=== PATIENT | male | born 1995 | race Caucasian/White ===

== ENCOUNTER → 2016-06-21 | Outpatient (CLI) | payer BC ==
[~2016-06-21] MED LIST: AZIT250T81 PO; LIDOVISC MT
[2016-06-21 11:14] VITALS: BP 142/80
--- NOTE | 2016-06-21 11:14 | Urgent Care T Sheet Gen (E) ---
Intake General Temperature (Fahrenheit): 100.4 Pulse: 101 Blood Pressure Systolic: 142 Blood Pressure Diastolic: 80 (taking OTC cold meds) Respirations: 20 SPO2: 96 Description of Symptoms patient presents with body aches, chills, sore throat and phlegm. Patient was seen 2 weeks ago at home and was checked for strep (negative) and was told he has a URI and was started on Flonase and Claritin. Patient states he had been doing better however felt worse last night. [place] a baseball tourney. Been taking DayQuil, NyQuil and Tylenol which helps temporarily. Respiratory Constitutional Symptoms: Chills Fever Malaise EENTM: Nose Congestion Throat pain Respiratory: Cough Cardiovascular: No symptoms reported Gastrointestinal/Abdominal: No symptoms reported All Other Systems Reviewed Remaining Systems: All other systems reviewed with negative findings Physical Exam Physical Exam General Appearance: WD/WN No apparent distress Eyes, Ears, Nose, Throat Ex: TMs normal Pharyngeal erythema Other (clear, thick nasal congestion) Neck Exam: Supple Lymphadenopathy Respiratory Exam: Lungs clear Normal breath sounds Cardiovascular Exam: Regular rate, rhythm Progress/Orders Lab Results Labs Results: [place] (negative), Rapid Strep (negative) Medications Administered Medications Adminstered: Depomedrol (80mg IM injection into R gluteal. Lot [id number] Lot 11/2016) Departure Urgent Care Impression Impression: Primary Impression: Pharyngitis Qualified Code: J02.8 - Acute pharyngitis due to other specified organisms Additional Impression: Cough Departure Disposition: 01 HOME OR SELF-CARE Condition: Stable Additional Instructions: Rapid strep and mono were both negative I do believe the patient's symptoms are a continuation from his previous URI which didn't completely resolve. I have started him on a Zpak and Visc lidocaine for throat pain. I have also given him a Depo medrol shot to help with inflammation and allow him to play baseball this weekend. No NSAIDs for the next 3 days Rest. Fluids Return as needed or f/u with PCP Patient and his parents understand DC instructions. All questions were answered. Scripts Lidocaine HCl (Xylocaine 2% Viscous)100 Ml Soln5 Ml MT Q2H W/A PRN SORE THROAT # 1 BTL Gargle and spit 5ml po q 2 hrs prn sore throat. Prov:GILBERT RODRIGUEZ 5/11/17 Azithromycin (Zithromax Z-G[place]ar)6 Tab/Pkt [id number] Mg PO SEE INSTRUCTIONS #6 TAB Ref 0 Day One: Take 2 tablets by mouth Days Two-Five: Take 1 tablet by mouth Prov:GILBERT RODRIGUEZ 06/21/16 End of report . GILBERT RODRIGUEZ June 21, 2016 11:14
== END ==
LOC: MHUC 10:24
PROVIDERS: ATTEND Physician Assistant
DX: J02.8 Acute pharyngitis due to other specified organisms (principal); R05 Cough
CPT/HCPCS: 86403; 87880; 99203